=== PATIENT | female | born 1990 | race Caucasian/White ===

== ENCOUNTER 2022-11-03 10:44 | Emergency (ER) | payer MEDICAID ==
[~2022-11-03] VITALS: Ht 154.9 cm; Wt 68.0 kg
[2022-11-03 10:58] VITALS: BP 105/72
[2022-11-03] MEDS ORDERED: TOBR5DRO2 LEFTEYE (13:25)
== END 2022-11-03 13:54 | disposition home or self-care (01) ==
LOC: ER 10:45
DX: H10.9 Unspecified conjunctivitis (principal)
CPT/HCPCS: 99283

== ENCOUNTER 2023-05-10 10:07 | Emergency (ER) | payer MEDICAID ==
[~2023-05-10] VITALS: Ht 154.9 cm; Wt 68.0 kg
[~2023-05-10 10:07] MED LIST: TOBR5DRO2 LEFTEYE
[2023-05-10 10:09] VITALS: BP 120/79
[2023-05-10] MEDS ORDERED: CEPH250T PO (10:28)
== END 2023-05-10 10:47 | disposition home or self-care (01) ==
LOC: ER 10:07
DX: K08.89 Other specified disorders of teeth and supporting structures (principal); K01.1 Impacted teeth; Z79.2 Long term (current) use of antibiotics
CPT/HCPCS: 99283

== ENCOUNTER 2024-03-28 17:50 | Emergency (ER) | payer MEDICAID ==
[~2024-03-28] VITALS: Ht 154.9 cm; Wt 66.0 kg
[2024-03-28 17:55] VITALS: BP 127/77; PULSE 103; RESP 16; TEMP 97.9; O2SAT 100
== END 2024-03-28 19:07 | disposition home or self-care (01) ==
LOC: ER 17:51
DX: S93.491A Sprain of other ligament of right ankle, initial encounter (principal); Z79.899 Other long term (current) drug therapy; W10.8XXA Fall (on) (from) other stairs and steps, initial encounter; Y93.89 Activity, other specified; Y92.89 Other specified places as the place of occurrence of the external cause; Y99.8 Other external cause status
CPT/HCPCS: 73630; 99283; A6449

== ENCOUNTER 2025-05-06 12:25 | Emergency (ER) | payer MEDICAID ==
[~2025-05-06] VITALS: Ht 154.9 cm; Wt 78.1 kg
[2025-05-06 12:28] VITALS: BP 107/78; PULSE 98; RESP 18; TEMP 98.3; O2SAT 100
--- NOTE | 2025-05-06 13:17 | Physician Documentation ---
History of Present Illness ~ Chief Complaint: Rash Stated Complaint: POSS SHINGLES Time Seen by MD: 12:53 Primary Medical Doctor: [facility] Romero TOLEDO Medication Reconciliation Allergies: Coded Allergies: No Known Allergies (Unverified , 03/28/24) Scheduled Tobramycin Sulfate/Dexameth (Tobradex Eye Drops), 1 DROP LEFTEYE Q6H Valacyclovir HCl (Valacyclovir), 1 TAB PO Q8H Past Medical History Past Medical History: No Pertinent History Past Surgical History: no surgical history Drug Use: none Lives In: Home Review of Systems All Other Systems at this time: Reviewed and Negative ROS As stated above in the HPI, otherwise all systems are reviewed and negative. Physical Exam Vital Signs: Temperature: 98.3, Heart Rate: 98, Respiratory Rate: 18, BP: 107/78, Pulse Oximetry: 100, Weight: 78.100 Physical Exam General: Alert, no apparent distress. HEENT: PERRL, EOMI, no injection, moist mucous membranes. Psychiatric: Normal mood and affect. Skin: Normal color, warm and dry. No edema, no ecchymosis. Macular rash on the right posterior thoracic region in a unilateral dermatome pattern Progress Results/Orders Results/Orders Orders - GHULAM DENG NP Valacyclovir Tablet (Valtrex Tablet) (05/06/25 13:11) Medications Received in ER Medications (Trade) Dose Ordered Sig/Bebe Route PRN Reason Start Time Stop Time Status Last Admin Dose Admin (Valtrex tablet) 1,000 mg Q8H PO 05/06/25 13:11 05/06/25 13:27 1,000 MG Vital Signs 05/06/25 12:28 Temp 98.3 Pulse 98 Resp 18 B/P (MAP) 107/78 Pulse Ox 100 Medical Decision Making Findings Treating patient is empirically for shingles. Gave her that the initial dose of valacyclovir. Differential Dx:Considerations: Include: Abscess, AIDS/HIV, Anthrax (cutaneous), Atopic dermatitis, Candidiasis, Contact dermatitis, Drug reaction, Erythema multiforme, Erysipelas, Gangrene, Herpes zoster, Herpes simplex, Hidradenitis suppurativa, Impetigo, Intertrigo, Lymes disease, Molluscum contagiosum, Osteomyelitis, Pediculosis, Pityriasis rosea, Psoriaisis, RMSF, Rosacea, Scabies, Scarlet fever, Tinea, Urticaria, Varicella, Viral exanthema, Other Departure Disposition: 01 HOME / SELF CARE / HOMELESS Impression: Primary Impression: Shingles Condition: Stable Discharge Instructions: Shingles, [id number] Referrals: NO PRIMARY CARE PROVIDER (PCP) Prescriptions Valacyclovir HCl (Valacyclovir) 1,000 Mg Tablet 1 TAB PO Q8H for 7 Days, #21 TAB 0 Refills Prov: GHULAM DENG NP 05/06/25 Education Educated: Patient Educated regarding: diagnosis Signature Scribe Signature: ds Attestation: Scribed for Ghulam Deng [employer] by Ghulam Jasso NP . 05/06/25 13:31 GHULAM DENG NP May 06, 2025 13:17
[2025-05-06] MEDS ORDERED: VALA100031 PO (13:35)
== END 2025-05-06 13:46 | disposition home or self-care (01) ==
LOC: ER 12:26
DX: B02.9 Zoster without complications (principal)
CPT/HCPCS: 99283; A6258; A6449

== ENCOUNTER 2025-10-27 12:22 | Emergency (ER) | payer MEDICAID ==
[~2025-10-27] VITALS: Ht 154.9 cm; Wt 72.4 kg
[~2025-10-27 12:22] MED LIST changes: +VALA100031 PO
[2025-10-27] MEDS ORDERED: CEPH-585 PO (13:51)
--- NOTE | 2025-10-27 13:52 | Physician Documentation ---
History of Present Illness ~ Chief Complaint: Breast pain Stated Complaint: MULTIPLE MED COMPLAINTS Time Seen by MD: 13:37 Primary Medical Doctor: DIANE TOLEDO Source: patient Mode of Arrival: POV Exam Limitations: no limitations HPI 34-year-old and a 2-year-old and a 3-month-old noticed redness and firmness as well as heat to the left breast with having mastitis in the past has come in for antibiotics Tetanus within 5 years?: Yes Medication Reconciliation Allergies: Coded Allergies: No Known Allergies (Unverified , 10/27/25) Scheduled Tobramycin Sulfate/Dexameth (Tobradex Eye Drops), 1 DROP LEFTEYE Q6H Valacyclovir HCl (Valacyclovir), 1 TAB PO Q8H Past Medical History Past Medical History: No Pertinent History Past Surgical History: no surgical history Drug Use: none Lives In: Home Review of Systems All Other Systems at this time: Reviewed and Negative Female Genitalia: Reports: see HPI Physical Exam Vital Signs: RN Vital Signs have been reviewed: Yes, Temperature: 98.1, Source: Oral, Heart Rate: 120, Respiratory Rate: 16, BP: 123/83, Pulse Oximetry: 97, Weight: 72.400 Oxygen Flow Rate: 0 General Appearance General: Alert, no apparent distress. HEENT: moist mucous membranes. Neck: Full range of motion. Respiratory: No respiratory distress speaking in full sentences Chest: No accessory muscle use. Cardiovascular: Appears well perfused Neurologic: Oriented x4. Psychiatric: Normal mood and affect. Skin: 4 x 5 cm area of erythema warmth and induration to left breast near the nipple Progress Results/Orders Results/Orders Vital Signs 10/27/25 12:28 Temp 98.1 Pulse 120 Resp 16 B/P (MAP) 123/83 Pulse Ox 97 O2 Flow Rate 0 Medical Decision Making Additional information obtaine: N/A Findings Feeding mom with mastitis of the left breast still 4-year-old and 3-month-old. Keflex ordered warm compress to follow up with primary care Differential Dx:Considerations: Include: Breast abscess, Cellulitis, Mastitis Departure Time of Disposition: 13:51 Disposition: 01 HOME / SELF CARE / HOMELESS Impression: Primary Impression: Mastitis associated with Condition: Stable Discharge Instructions: Mastitis Additional Instructions: Take antibiotics as prescribed follow up with primary care medication is safe while Referrals: NO PRIMARY CARE PROVIDER (PCP) Prescriptions Cephalexin*Monohydrate* (Keflex*) 500 Mg Capsule 1 CAP PO Q8H for 10 Days, #30 CAP Prov: ELDA ESCOBAR NP 10/27/25 Education Educated: Patient Educated regarding: diagnosis, treatment, need for follow up Signature Scribe Signature: No scribe Attestation: The note accurately reflects work and decisions made by me.Elda Escobar - ADDICTION PSYCHIATRIST 10/27/25 13:52 ELDA ESCOBAR NP Oct 27, 2025 13:52
[2025-10-27 14:09] VITALS: BP 126/71; PULSE 101; RESP 16; TEMP 98.1; O2SAT 99
== END 2025-10-27 14:00 | disposition home or self-care (01) ==
LOC: ER 12:22
DX: N61.0 Mastitis without abscess (principal); Z79.899 Other long term (current) drug therapy
CPT/HCPCS: 99283